=== PATIENT | female | born 1970 | race Caucasian/White ===

== ENCOUNTER → 2016-08-31 | Outpatient (CLI) | payer BC ==
[~2016-08-31] MED LIST: ATIV1TAB7 PO; BACL-67 PO; BENT10CA PO; CELE-19 PO; CIPR-250 PO; COPA1INJ SC; DEXT10TA2 PO; DEXT5CAP5 PO; DEXT5TAB3 PO; DITR1TAB PO; DULO30CA PO; ESTR2TAB4 PO; IBUP600T26 PO; K-TA10TA2 PO; KEPP500T6 PO; KEPP750T3 PO; LYRI100C10 PO; MAXA10TA14 PO; NORT50CA PO; PAME25CA PO; PAME50CA PO; PERC5TAB6 PO; POTA20TA PO; POTA75TA PO; PREV30CA11 PO; PROV100T4 PO; REQU2TAB PO; REQU2TAB3 PO; RIZA10TA4 PO; TOPA100T8 PO; TRAZ150T14 PO; VITA250L PO; ZANA4CAP PO
--- NOTE | 2016-08-31 15:20 | REP ---
CERVICAL SPINE, EIGHT VIEWS: HISTORY: Spondylosis. There is no acute fracture. The C6-7 and C7-T1 intervertebral discs are decreased in height consistent with disc degeneration. The neural foramina are patent. There are 3 mm of anterior subluxation of C7 on T1. This is unchanged with flexion and extension. IMPRESSION: Degenerative change as described above. Signed by Arnold Robert MD 08/31/2016 03:22 P
== END ==
LOC: M RAD 14:17
PROVIDERS: ATTEND Neurological Surgery
DX: M47.892 Other spondylosis, cervical region (principal)

== ENCOUNTER → 2016-10-13 | Outpatient (REF) | payer BC ==
[2016-10-13 16:05] LABS: BASO % 0.8 % (0.0-1.0); EOS # 0.1 K/mm3 (0.0-0.50); EOS % 1.8 % (0.0-3.0); LARGE UNSTAINED CELL # 0.1 K/mm3 (0.0-0.4); LARGE UNSTAINED CELL % 1.9 % (0.0-4.0); LYMPH # 1.7 K/mm3 (1.5-4.5); LYMPH % 29.1 % (24.0-44.0); MEAN CORPUSCULAR HEMOGLOBIN 30.1 pg (27.0-33.0); MEAN CORPUSCULAR HGB CONC 33.1 g/dl (32.0-36.5); MEAN CORPUSCULAR VOLUME 91.1 fl (80.0-96.0); MONO # 0.4 K/mm3 (0.0-0.8); MONO % 6.4 % (0.0-5.0); NEUTROPHILS # 3.2 K/mm3 (1.8-7.7); PLATELET COUNT, AUTOMATED 191 k/mm3 (150-450); RED CELL DISTRIBUTION WIDTH 12.4 % (11.5-14.5); WHITE BLOOD COUNT 5.4 K/mm3 (4.0-10.0)
[2016-10-13 16:10] LABS: FOLATE > 24.0 NG/ML (>5.4); VITAMIN B12 LEVEL 693 PG/ML (247-911)
[2016-10-13 16:13] LABS: ALBUMIN 3.8 GM/DL (3.2-5.2); ALBUMIN/GLOBULIN RATIO 1.09 (1.00-1.93); ALKALINE PHOSPHATASE 69 U/L (45-117); ALT/SGPT 35 U/L (12-78); ANION GAP 7 MEQ/L (8-16); AST/SGOT 20 U/L (15-37); BILIRUBIN,TOTAL 0.3 MG/DL (0.2-1.0); BLOOD UREA NITROGEN 17 MG/DL (7-18); CALCIUM LEVEL 8.9 MG/DL (8.5-10.1); CARBON DIOXIDE LEVEL 26 MEQ/L (21-32); CHLORIDE LEVEL 109 MEQ/L (98-107); CREATININE FOR GFR 0.82 MG/DL (0.55-1.02); GLOMERULAR FILTRATION RATE > 60.0 (>58); GLUCOSE, FASTING 82 MG/DL (70-105); POTASSIUM SERUM 4.1 MEQ/L (3.5-5.1); SODIUM LEVEL 142 MEQ/L (136-145); TOTAL PROTEIN 7.3 GM/DL (6.4-8.2)
== END ==
LOC: M LABNEURO 12:28
PROVIDERS: ATTEND Psychiatry & Neurology Neurology
DX: G35 Multiple sclerosis (principal)

== ENCOUNTER → 2016-10-20 | Outpatient (REF) | payer BC ==
[2016-10-20 16:21] LABS: BASO % 0.9 % (0.0-1.0); EOS # 0.2 K/mm3 (0.0-0.50); EOS % 2.6 % (0.0-3.0); LARGE UNSTAINED CELL # 0.1 K/mm3 (0.0-0.4); LARGE UNSTAINED CELL % 1.7 % (0.0-4.0); LYMPH # 1.4 K/mm3 (1.5-4.5); LYMPH % 23.3 % (24.0-44.0); MEAN CORPUSCULAR HEMOGLOBIN 30.3 pg (27.0-33.0); MEAN CORPUSCULAR HGB CONC 33.4 g/dl (32.0-36.5); MEAN CORPUSCULAR VOLUME 90.7 fl (80.0-96.0); MONO # 0.4 K/mm3 (0.0-0.8); MONO % 6.9 % (0.0-5.0); NEUTROPHILS # 3.7 K/mm3 (1.8-7.7); NEUTROPHILS % 64.6 % (36.0-66.0); PLATELET COUNT, AUTOMATED 184 k/mm3 (150-450); RED CELL DISTRIBUTION WIDTH 12.7 % (11.5-14.5); WHITE BLOOD COUNT 5.7 K/mm3 (4.0-10.0)
[2016-10-20 16:40] LABS: ALBUMIN 3.4 GM/DL (3.2-5.2); ALKALINE PHOSPHATASE 67 U/L (45-117); ALT/SGPT 28 U/L (12-78); ANION GAP 7 MEQ/L (8-16); AST/SGOT 16 U/L (15-37); BILIRUBIN,TOTAL 0.3 MG/DL (0.2-1.0); BLOOD UREA NITROGEN 17 MG/DL (7-18); CALCIUM LEVEL 8.1 MG/DL (8.5-10.1); CARBON DIOXIDE LEVEL 26 MEQ/L (21-32); CHLORIDE LEVEL 109 MEQ/L (98-107); CREATININE FOR GFR 0.88 MG/DL (0.55-1.02); GLOMERULAR FILTRATION RATE > 60.0 (>58); GLUCOSE, FASTING 85 MG/DL (70-105); POTASSIUM SERUM 3.3 MEQ/L (3.5-5.1); SODIUM LEVEL 142 MEQ/L (136-145); TOTAL PROTEIN 6.8 GM/DL (6.4-8.2)
[2016-10-20 18:19] LABS: ERYTHROCYTE SEDIMENTATION RATE 6 mm/hr (0-20)
[2016-10-23 00:06] LABS: Lyme Disease IgG/IgM Antibodie <0.91 ISR (0.00-0.90); Lyme Disease IgM Ab Quantitati <0.80 index (0.00-0.79)
== END ==
LOC: M LABDRAW1 15:27
PROVIDERS: ATTEND Internal Medicine Rheumatology
DX: Z51.81 Encounter for therapeutic drug level monitoring (principal); Z79.899 Other long term (current) drug therapy; M35.9 Systemic involvement of connective tissue, unspecified

== ENCOUNTER 2016-12-21 07:04 | Outpatient (CLI) | payer BC ==
[~2016-12-21 07:04] MED LIST changes: -BACL-67 PO; +BACL1TAB9 PO; -CELE-19 PO; +CELE1CAP4 PO; +IBUP-1022 PO; -IBUP600T26 PO; +KEPP1TAB PO; -KEPP500T6 PO; -LYRI100C10 PO; +PERC5TAB12 PO; -PERC5TAB6 PO; +PREG100CA PO; +PREV1CAP PO; -PREV30CA11 PO; +PROV100T25 PO; -PROV100T4 PO; +TOPA100T12 PO; -TOPA100T8 PO; -TRAZ150T14 PO; +TRAZ1TAB14 PO
[2016-12-21] MEDS ORDERED: methylPREDNISolone 1,000 MG, VIAL MATE ADAPTER 1 EACH in D5W 250 ML IV ONE (07:30)
== END 2016-12-21 09:00 | disposition home or self-care (01) ==
LOC: M INFU 07:04
PROVIDERS: ATTEND Psychiatry & Neurology Neurology
DX: G35 Multiple sclerosis (principal); Z79.891 Long term (current) use of opiate analgesic; Z79.899 Other long term (current) drug therapy; Z88.0 Allergy status to penicillin; Z88.2 Allergy status to sulfonamides; M62.81 Muscle weakness (generalized); Z87.891 Personal history of nicotine dependence
CPT/HCPCS: 96365; J2930

== ENCOUNTER 2016-12-22 06:19 | Outpatient (CLI) | payer BC ==
[~2016-12-22 06:19] MED LIST changes: +methylPREDNISolone 1,000 MG, VIAL MATE ADAPTER 1 EACH in D5W 250 ML IV ONE
== END 2016-12-22 08:00 | disposition home or self-care (01) ==
LOC: M INFU 06:19
PROVIDERS: ATTEND Psychiatry & Neurology Neurology
DX: G35 Multiple sclerosis (principal); Z79.891 Long term (current) use of opiate analgesic; Z79.899 Other long term (current) drug therapy; Z88.0 Allergy status to penicillin; Z88.2 Allergy status to sulfonamides
CPT/HCPCS: 96365; J2930

== ENCOUNTER 2016-12-23 06:23 | Outpatient (CLI) | payer BC ==
[~2016-12-23 06:23] MED LIST changes: -methylPREDNISolone 1,000 MG, VIAL MATE ADAPTER 1 EACH in D5W 250 ML IV ONE
[2016-12-23] MEDS ORDERED: methylPREDNISolone 1,000 MG, VIAL MATE ADAPTER 1 EACH in D5W 250 ML IV ONE (06:45)
== END 2016-12-23 08:00 | disposition home or self-care (01) ==
LOC: M INFU 06:23
PROVIDERS: ATTEND Psychiatry & Neurology Neurology
DX: G35 Multiple sclerosis (principal); Z79.891 Long term (current) use of opiate analgesic; Z79.899 Other long term (current) drug therapy; Z88.0 Allergy status to penicillin; Z88.2 Allergy status to sulfonamides; K50.90 Crohn's disease, unspecified, without complications; Z87.891 Personal history of nicotine dependence
CPT/HCPCS: 96365; J2930

== ENCOUNTER 2016-12-24 06:25 | Outpatient (CLI) | payer BC ==
[~2016-12-24 06:25] MED LIST changes: +methylPREDNISolone 1,000 MG, VIAL MATE ADAPTER 1 EACH in D5W 250 ML IV ONE
== END 2016-12-24 08:00 | disposition home or self-care (01) ==
LOC: M INFU 06:25
PROVIDERS: ATTEND Psychiatry & Neurology Neurology
DX: G35 Multiple sclerosis (principal); Z79.891 Long term (current) use of opiate analgesic; Z79.899 Other long term (current) drug therapy; Z88.0 Allergy status to penicillin; Z88.2 Allergy status to sulfonamides; K50.90 Crohn's disease, unspecified, without complications; Z87.891 Personal history of nicotine dependence
CPT/HCPCS: 96365; J2930

== ENCOUNTER 2016-12-25 06:14 | Outpatient (CLI) | payer BC ==
[~2016-12-25 06:14] MED LIST changes: -methylPREDNISolone 1,000 MG, VIAL MATE ADAPTER 1 EACH in D5W 250 ML IV ONE
[2016-12-25] MEDS ORDERED: methylPREDNISolone 1,000 MG, VIAL MATE ADAPTER 1 EACH in D5W 250 ML IV ONE (06:15)
== END 2016-12-25 07:40 | disposition home or self-care (01) ==
LOC: M INFU 06:14
PROVIDERS: ATTEND Psychiatry & Neurology Neurology
DX: G35 Multiple sclerosis (principal); Z79.891 Long term (current) use of opiate analgesic; Z79.899 Other long term (current) drug therapy; Z88.0 Allergy status to penicillin; Z88.2 Allergy status to sulfonamides; Z87.891 Personal history of nicotine dependence
CPT/HCPCS: 96365; J2930

== ENCOUNTER → 2018-08-17 | Outpatient (CLI) | payer OTHER ==
[~2018-08-17] MED LIST changes: +KLOR20TA42 PO; -POTA20TA PO; +PROHANCE 279.3MG/ML 15ML VIAL (A9576) As Ordered ONE; +PROHANCE 279.3MG/ML 5ML VIAL (A9576) As Ordered ONE
--- NOTE | 2018-08-17 19:59 | REP ---
MR BRAIN WITHOUT AND WITH CONTRAST: HISTORY: Chiari syndrome. 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 Several punctate areas of increased signal intensity on T2-weighted images are present in the periventricular white matter of the right parietal lobe. This represents small-vessel ischemic disease. There is no intraparenchymal hemorrhage, infarct, mass or midline shift. A 6 mm pineal cyst is present. There is no abnormal enhancement. The ventricular system is normal in appearance. There is no extracerebral collection. Minimal mucosal thickening is present in the ethmoid and maxillary sinuses. There is no syrinx in the visualized cervical spinal cord. IMPRESSION: 1. Small l small vessel ischemic disease. 2. 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 Electronically Signed by Arnold Robert MD 08/18/2018 08:44 A
== END ==
LOC: M RAD 15:24
PROVIDERS: ATTEND Neurological Surgery
DX: Q07.00 Arnold-Chiari syndrome without spina bifida or hydrocephalus (principal); I67.82 Cerebral ischemia
CPT/HCPCS: 70553; A9576

== ENCOUNTER → 2018-10-22 | Outpatient (CLI) | payer MEDICARE ==
[~2018-10-22] MED LIST changes: -DULO30CA PO; +DULO30CA9 PO; -PROHANCE 279.3MG/ML 15ML VIAL (A9576) As Ordered ONE; -PROHANCE 279.3MG/ML 5ML VIAL (A9576) As Ordered ONE
--- NOTE | 2018-10-24 09:19 | REP ---
MR CERVICAL SPINE WITHOUT CONTRAST: HISTORY: Disc degeneration. COMPARISON: 10/03/2010 A disc bulge is present at the C4-5 level. There is minimal effacement of the thecal sac without spinal cord compression. The C4 neural foramina are patent. A disc bulge is present at the C5-6 level. There is minimal effacement of the thecal sac without spinal cord compression. The C5 neural foramina are patent. A disc bulge is present at the C6-7 level. There is minimal effacement of the thecal sac without spinal cord compression. The C6 neural foramina are patent. There is no other disc bulge or herniation. The remaining neural foramina are patent. The patient is status-post suboccipital craniectomy for cerebellar tonsillar ectopia. The spinal cord is normal in signal intensity. There is no syrinx. Normal signal intensity is present in the cervical vertebral bodies. IMPRESSION:1. There is cervical spondylosis at the C4-5 through C6-7 levels without spinal cord compression. These findings are unchanged compared to the previous study. 2. The patient is status-post sub occipital craniectomy for cerebellar tonsillar ectopia. The sub occipital craniectomy is a new finding compared to the previous study. Electronically Signed by Arnold Robert MD 10/24/2018 09:36 A
== END ==
LOC: M RAD 08:23
PROVIDERS: ATTEND Physician Assistant Surgical
DX: M47.892 Other spondylosis, cervical region (principal); Z98.890 Other specified postprocedural states; M50.30 Other cervical disc degeneration, unspecified cervical region; M47.22 Other spondylosis with radiculopathy, cervical region

== ENCOUNTER → 2024-08-14 | Outpatient (REF) | payer MEDICARE, OTHER ==
[~2024-08-14] MED LIST changes: -K-TA10TA2 PO; -KLOR20TA42 PO; -MAXA10TA14 PO; +POTA-141 PO; +POTA-165 PO; -RIZA10TA4 PO; +RIZA10TA58 PO; +RIZA10TA64 PO
== END ==
LOC: M LAB REF 16:45
PROVIDERS: ATTEND Physician Assistant
DX: H10.022 Other mucopurulent conjunctivitis, left eye (principal)

== ENCOUNTER → 2024-08-28 | Outpatient (REF) | payer MEDICARE, OTHER | LOC: M LAB REF 14:20 | PROVIDERS: ATTEND Physician Assistant | DX: H10.022 Other mucopurulent conjunctivitis, left eye (principal) ==

== ENCOUNTER → 2025-03-09 | Outpatient (REF) | payer OTHER ==
[~2025-03-09] MED LIST changes: -IBUP-1022 PO; +IBUP600T42 PO; +PREG-35 PO; -PREG100CA PO
[2025-03-09 18:21] LABS: BASO # 0.1 10^3/uL (0.0-0.2); BASO % 0.9 % (0.0-1.0); EOS # 0.4 10^3/uL (0.0-0.5); EOS % 4.9 % (0.0-3.0); LYMPH # 1.7 10^3/uL (1.5-5.0); LYMPH % 21.2 % (24.0-44.0); MONO # 0.6 10^3/uL (0.0-0.8); MONO % 7.5 % (2.0-8.0); NEUTROPHILS # 5.3 10^3/uL (1.5-8.5); NEUTROPHILS % 65.3 % (36.0-66.0); PLATELET COUNT, AUTOMATED 178 10^3/uL (150-450)
[2025-03-09 18:28] LABS: CALCIUM LEVEL 8.3 MG/DL (8.5-10.1); CARBON DIOXIDE LEVEL 25.0 MMOL/L (20-31); CHLORIDE LEVEL 113.0 MMOL/L (98-107); CREATININE FOR GFR 0.87 MG/DL (0.55-1.30); GLOMERULAR FILTRATION RATE 78.6 (>51); MAGNESIUM LEVEL 1.8 MG/DL (1.8-2.4); POTASSIUM SERUM 3.7 MMOL/L (3.5-5.1); SODIUM LEVEL 144.0 MMOL/L (136-145)
[2025-03-09 18:30] LABS: VITAMIN B12 LEVEL 404.0 PG/ML (211-911)
== END ==
LOC: M SFHCLERA 08:37
PROVIDERS: ATTEND Family Medicine
DX: D75.89 Other specified diseases of blood and blood-forming organs (principal); D75.1 Secondary polycythemia; E87.6 Hypokalemia